=== PATIENT | male | born 1945 | race Caucasian/White ===

== ENCOUNTER → 2017-06-29 | Outpatient (CLI) | payer MEDICARE, BC | END | disposition home or self-care (01) | LOC: HKI 13:34 | DX: Z09 Encounter for follow-up examination after completed treatment for conditions other than malignant neoplasm (principal); M25.562 Pain in left knee; M25.462 Effusion, left knee; I10 Essential (primary) hypertension; Z96.653 Presence of artificial knee joint, bilateral | CPT/HCPCS: 73562; 73562-50 ==